=== PATIENT | female | born 1980 | race Caucasian/White ===

== ENCOUNTER 2016-10-26 17:15 | Emergency (ER) | payer SELFPAY ==
[~2016-10-26 17:15] MED LIST: Z.0.NO CURRENT MEDS; ZOFR4TAB3 SL
[2016-10-26 17:17] VITALS: BP 130/75; PULSE 90; RESP 20; TEMP 98.4; O2SAT 100
--- NOTE | 2016-10-26 17:34 | PD ---
Physical Exam Date Seen by Provider: Oct 26, 2016 Time Seen by Provider: 17:32 Narrative 36 YOHF WITH C/O CP X 1WEEK .STARTED WITH STRESS AND SOCIAL ISSUES AT HOME . SOME ANXIETY WITH SOB. NO N/V OR SWEATING. H/O CP IN THE PAST VSS. AWAITING BED PLACEMENT Data Data Last Documented VS Vital Signs Date Time Temp Pulse Resp B/P Pulse Ox O2 Delivery O2 Flow Rate FiO2 10/26/16 17:17 98.4 90 20 130/75 100 Room Air [facility] Medical Record Reviewed: Yes Supervised Visit with INDRA: Yes John Rossi Oct 26, 2016 17:34
--- NOTE | 2016-10-27 10:29 | EKG ---
Date Performed: 10/26/2016 Time Performed: 17:38:39 PTAGE: 36 years EKG: Sinus rhythm NORMAL ECG NO PREVIOUS TRACING DOCTOR: Stephanie Alcala Interpretating Date/Time 10/27/2016 10:25:30
== END 2016-10-26 21:27 | disposition left against medical advice (07) ==
LOC: NED 17:15
DX: R07.9 Chest pain, unspecified (principal); Z53.29 Procedure and treatment not carried out because of patient's decision for other reasons
CPT/HCPCS: 93005

== ENCOUNTER 2017-11-26 13:27 | Emergency (ER) | payer OTHER ==
[~2017-11-26] VITALS: Ht 162.6 cm; Wt 117.3 kg
[2017-11-26 13:28] VITALS: BP 135/72; PULSE 79; RESP 16; TEMP 98.8; O2SAT 98
--- NOTE | 2017-11-26 14:39 | PD ---
HPI Chief Complaint: Chest Pain Time Seen by Provider: 14:20 Travel History International Travel<30 days: No Contact w/Intl Traveler<30days: No Traveled to known affect area: No History of Present Illness HPI This 37-year-old female has been having chest pain for the last 2-1/2 weeks. The pain she is having is a sharp substernal chest pain that lasts up to a minute. There is no radiation of the pain. She does feel short of breath. Pain is severe. She does not smoke she has no hypertension or diabetes. She does not know her family history. She described it as a sharp pulsating pain. She has had costochondritis in the past. That pain radiated down her left arm that this pain does not. His been going on for the last 2-1/2 weeks. She says she had multiple episodes last night PFSH Past Medical History Diminished Hearing: No Influenza Vaccination: Yes ?: Not LMP: 11/2016 Tubal Ligation: Yes Past Surgical History Section: Yes Cholecystectomy: Yes Social History Alcohol Use: Yes Tobacco Use: No Substance Use: No Allergies-Medications (Allergen,Severity, Reaction): Coded Allergies: No Known Allergies (Unverified Adverse Reaction, Unknown, 11/26/17) Reported Meds & Prescriptions Reported Meds & Active Scripts Active Ibuprofen 600 Mg Tab 600 Mg PO TID Review of Systems General / Constitutional: No: Fever, Chills Eyes: No: Diploplia, Blurred Vision HENT: No: Headaches Cardiovascular: Positive: Chest Pain or Discomfort, No: Palpitations Respiratory: No: Cough, Shortness of Breath Gastrointestinal: No: Vomiting, Diarrhea Genitourinary: No: Urgency, Frequency Musculoskeletal: Positive: Myalgias Skin: No Rash, No Itching Neurologic: No: Weakness Endocrine: No: Heat Intolerance, Cold Intolerance Hematologic/Lymphatic: No: Easy Bruising Physical Exam Narrative GENERAL: Well-developed female SKIN: Focused skin assessment warm/dry. HEAD: Atraumatic. Normocephalic. EYES: Pupils equal and round. No scleral icterus. No injection or drainage. ENT: No nasal bleeding or discharge. Mucous membranes pink and moist. NECK: Trachea midline. No JVD. CARDIOVASCULAR: Regular rate and rhythm. No murmur appreciated. RESPIRATORY: No accessory muscle use. Clear to auscultation. Breath sounds equal bilaterally. There is some left-sided costochondral tenderness GASTROINTESTINAL: Abdomen soft, non-tender, nondistended. Hepatic and splenic margins not palpable. MUSCULOSKELETAL: No obvious deformities. No clubbing. No cyanosis. No edema. NEUROLOGICAL: Awake and alert. No obvious cranial nerve deficits. Motor grossly within normal limits. Normal speech. PSYCHIATRIC: Appropriate mood and affect; insight and judgment normal. Data Data Last Documented VS Vital Signs Date Time Temp Pulse Resp B/P (MAP) Pulse Ox O2 Delivery O2 Flow Rate FiO2 11/26/17 16:00 71 18 98 Room Air 11/26/17 16:00 128/72 (90) 11/26/17 13:28 98.8 Orders Orders Complete Blood Count With Diff (11/26/17 14:31) Comprehensive Metabolic Panel (11/26/17 14:31) Troponin I (11/26/17 14:31) Urinalysis - C+S If Indicated (11/26/17 14:31) Chest, Single Ap (11/26/17 14:31) Electrocardiogram (11/26/17 13:39) Ed Discharge Order (11/26/17 15:41) Labs Laboratory Tests Test 11/26/17 14:18 11/26/17 14:50 Urine Collection Type CLEAN CATCH Urine Color YELLOW Urine Turbidity CLEAR Urine pH 6.0 Urine Specific [place] 1.020 Urine Protein NEG mg/dL Urine Glucose (UA) NEG mg/dL Urine Ketones NEG mg/dL Urine Occult Blood LARGE Urine Nitrite NEG Urine Bilirubin NEG Urine Urobilinogen 0.2 MG/DL Urine Leukocyte Esterase NEG Urine RBC 10-14 /hpf Urine Squamous Epithelial Cells 0-5 /hpf Microscopic Urinalysis Comment CULT NOT INDICATED Urine Collection Time 1418 White Blood Count 10.4 TH/MM3 Red Blood Count 4.64 MIL/MM3 Hemoglobin 13.1 GM/DL Hematocrit 39.2 % Mean Corpuscular Volume 84.4 FL Mean Corpuscular Hemoglobin 28.3 PG Mean Corpuscular Hemoglobin Concent 33.5 % Red Cell Distribution Width 13.4 % Platelet Count 316 TH/MM3 Mean Platelet Volume 10.1 FL Neutrophils (%) (Auto) 55.3 % Lymphocytes (%) (Auto) 30.2 % Monocytes (%) (Auto) 9.0 % Eosinophils (%) (Auto) 1.8 % Basophils (%) (Auto) 3.7 % Neutrophils # (Auto) 5.8 TH/MM3 Lymphocytes # (Auto) 3.1 TH/MM3 Monocytes # (Auto) 0.9 TH/MM3 Eosinophils # (Auto) 0.2 TH/MM3 Basophils # (Auto) 0.4 TH/MM3 CBC Comment DIFF FINAL Differential Comment Blood Urea Nitrogen 17 MG/DL Creatinine 0.66 MG/DL Random Glucose 86 MG/DL Total Protein 7.7 GM/DL Albumin 3.5 GM/DL Calcium Level 9.0 MG/DL Alkaline Phosphatase 71 U/L Aspartate Amino Transf (AST/SGOT) 13 U/L Alanine Aminotransferase (ALT/SGPT) 26 U/L Total Bilirubin 0.8 MG/DL Sodium Level 140 MEQ/L Potassium Level 4.0 MEQ/L Chloride Level 107 MEQ/L Carbon Dioxide Level 28.3 MEQ/L Anion Gap 5 MEQ/L Estimat Glomerular Filtration Rate 102 ML/MIN Troponin I LESS THAN 0.02 NG/ML MDM Medical Decision Making Medical Screen Exam Complete: Yes Emergency Medical Condition: Yes Medical Record Reviewed: Yes Differential Diagnosis Differential includes costochondritis, atypical chest pain, coronary artery disease Narrative Course EKG shows normal sinus rhythm. Further workup is pending will be deep disposition determined by oncoming physician Scripts Ibuprofen (Ibuprofen) 600 Mg Tab 600 MG PO TID for Pain, #30 TAB 0 Refills Prov: Sanford Hernández MD 11/26/17 Sung Vance MD November 26, 2017 14:39
[2017-11-26 15:00] VITALS: BP 130/72; PULSE 72; RESP 16; O2SAT 96
[2017-11-26 15:04] LABS: AUTOMATED NEUTROPHIL # 5.8 TH/MM3 (1.8-7.7); BASOPHIL # 0.4 TH/MM3 (0-0.2); BASOPHIL % 3.7 % (0.0-2.0); EOSINOPHIL # 0.2 TH/MM3 (0-0.4); EOSINOPHIL % 1.8 % (0.0-4.0); HEMATOCRIT 39.2 % (35.0-46.0); HEMOGLOBIN 13.1 GM/DL (11.6-15.3); LYMPH % 30.2 % (9.0-44.0); LYMPHOCYTE # 3.1 TH/MM3 (1.0-4.8); MEAN CELL VOLUME 84.4 FL (80.0-100.0); MEAN CORPUSCULAR HEMOGLOBIN 28.3 PG (27.0-34.0); MEAN CORPUSCULAR HGB CONC 33.5 % (32.0-36.0); MEAN PLATELET VOLUME 10.1 FL (7.0-11.0); MONOCYTE # 0.9 TH/MM3 (0-0.9); NEUT % 55.3 % (16.0-70.0); PLATELET COUNT 316 TH/MM3 (150-450); RED BLOOD COUNT 4.64 MIL/MM3 (4.00-5.30); RED CELL DISTRIBUTION WIDTH 13.4 % (11.6-17.2); WHITE BLOOD COUNT 10.4 TH/MM3 (4.0-11.0)
[2017-11-26 15:04] LABS: BILIRUBIN, URINE NEG (NEG); BLOOD, URINE LARGE (NEG); GLUCOSE,URINE NEG (NEG); KETONE, URINE NEG (NEG); NITRITE,URINE NEG (NEG); URINE COLOR YELLOW (YELLW/STRAW); URINE LEUKOCYTE ESTERASE NEG (NEG)
[2017-11-26 15:11] LABS: SQUAMOUS EPITHELIAL CELL URINE 0-5 /hpf (0-5)
[2017-11-26 15:12] LABS: CHLORIDE 107 MEQ/L (98-107); SODIUM (NA) 140 MEQ/L (136-145)
[2017-11-26 15:16] LABS: ALBUMIN 3.5 GM/DL (3.4-5.0); BICARBONATE 28.3 MEQ/L (21.0-32.0); BLOOD UREA NITROGEN 17 MG/DL (7-18); GLUCOSE,RANDOM 86 MG/DL (74-106)
--- NOTE | 2017-11-26 15:17 | RADRPT ---
EXAM DATE/TIME: 11/26/2017 14:45 [facility] COMPARISON: No previous studies available for comparison. INDICATIONS : Chest pain and shortness of breath. MEDICAL HISTORY : None. SURGICAL HISTORY : None. ENCOUNTER: Initial ACUITY: 2 weeks PAIN SCORE: 7/10 LOCATION: Bilateral upper chest FINDINGS: Portable AP view of the chest demonstrates a normal-sized cardiac silhouette. No effusion, consolidat ion, or pneumothorax is visualized. The bones and soft tissues demonstrate no acute abnormality. EKG lines overlie the patient. CONCLUSION: No acute cardiopulmonary abnormality is identified. Ambrocio Huffman MD on November 26, 2017 at 15:14 Board Certified Radiologist. This report was verified electronically.
[2017-11-26 15:19] LABS: ALT (GPT) 26 U/L (10-53); AST (GOT) 13 U/L (15-37); CREATININE 0.66 MG/DL (0.50-1.00); GLOMERULAR FILTRATION RATE 102 ML/MIN (>89)
[2017-11-26 15:20] LABS: TOTAL BILIRUBIN ADULT 0.8 MG/DL (0.2-1.0); TOTAL PROTEIN 7.7 GM/DL (6.4-8.2)
[2017-11-26 15:22] LABS: ALKALINE PHOSPHATASE 71 U/L (45-117)
[2017-11-26 15:24] LABS: TROPONIN I LESS THAN 0.02 NG/ML (0.02-0.05)
[2017-11-26] MEDS ORDERED: IBUP-232 PO (15:41)
--- NOTE | 2017-11-26 15:41 | PD ---
Physical Exam Narrative Patient was seen by ED physician and signed out to me. Data Data Last Documented VS Vital Signs Date Time Temp Pulse Resp B/P (MAP) Pulse Ox O2 Delivery O2 Flow Rate FiO2 11/26/17 14:20 71 18 98 Room Air 11/26/17 13:28 98.8 135/72 (93) Orders Orders Complete Blood Count With Diff (11/26/17 14:31) Comprehensive Metabolic Panel (11/26/17 14:31) Troponin I (11/26/17 14:31) Urinalysis - C+S If Indicated (11/26/17 14:31) Chest, Single Ap (11/26/17 14:31) Electrocardiogram (11/26/17 13:39) Labs Laboratory Tests Test 11/26/17 14:18 11/26/17 14:50 Urine Collection Type CLEAN CATCH Urine Color YELLOW Urine Turbidity CLEAR Urine pH 6.0 Urine Specific [place] 1.020 Urine Protein NEG mg/dL Urine Glucose (UA) NEG mg/dL Urine Ketones NEG mg/dL Urine Occult Blood LARGE Urine Nitrite NEG Urine Bilirubin NEG Urine Urobilinogen 0.2 MG/DL Urine Leukocyte Esterase NEG Urine RBC 10-14 /hpf Urine Squamous Epithelial Cells 0-5 /hpf Microscopic Urinalysis Comment CULT NOT INDICATED Urine Collection Time 1418 White Blood Count 10.4 TH/MM3 Red Blood Count 4.64 MIL/MM3 Hemoglobin 13.1 GM/DL Hematocrit 39.2 % Mean Corpuscular Volume 84.4 FL Mean Corpuscular Hemoglobin 28.3 PG Mean Corpuscular Hemoglobin Concent 33.5 % Red Cell Distribution Width 13.4 % Platelet Count 316 TH/MM3 Mean Platelet Volume 10.1 FL Neutrophils (%) (Auto) 55.3 % Lymphocytes (%) (Auto) 30.2 % Monocytes (%) (Auto) 9.0 % Eosinophils (%) (Auto) 1.8 % Basophils (%) (Auto) 3.7 % Neutrophils # (Auto) 5.8 TH/MM3 Lymphocytes # (Auto) 3.1 TH/MM3 Monocytes # (Auto) 0.9 TH/MM3 Eosinophils # (Auto) 0.2 TH/MM3 Basophils # (Auto) 0.4 TH/MM3 CBC Comment DIFF FINAL Differential Comment Blood Urea Nitrogen 17 MG/DL Creatinine 0.66 MG/DL Random Glucose 86 MG/DL Total Protein 7.7 GM/DL Albumin 3.5 GM/DL Calcium Level 9.0 MG/DL Alkaline Phosphatase 71 U/L Aspartate Amino Transf (AST/SGOT) 13 U/L Alanine Aminotransferase (ALT/SGPT) 26 U/L Total Bilirubin 0.8 MG/DL Sodium Level 140 MEQ/L Potassium Level 4.0 MEQ/L Chloride Level 107 MEQ/L Carbon Dioxide Level 28.3 MEQ/L Anion Gap 5 MEQ/L Estimat Glomerular Filtration Rate 102 ML/MIN Troponin I LESS THAN 0.02 NG/ML MDM Supervised Visit with INDRA: No Interpretation(s) 1536 PM. EKG shows sinus rhythm nonspecific ST-T wave change. Last Impressions Chest X-Ray 11/26/17 1431 Signed Impressions: Service Date/Time: Sunday, November 26, 2017 14:45 - CONCLUSION: No acute cardiopulmonary abnormality is identified. Ambrocio Huffman MD 1536 PM. CBC within normal limits. CMP within normal limits. Cardiac enzymes are normal. UA is negative. Diagnosis Primary Impression: Atypical chest pain Patient Instructions: General Instructions Additional Instruction: Ibuprofen as needed for pain. Follow-up with local physician. Return if increasing chest pain shortness of breath. Med/Other Pt SpecificInfo: Prescription(s) given Scripts Ibuprofen (Ibuprofen) 600 Mg Tab 600 MG PO TID for Pain, #30 TAB 0 Refills Prov: Sanford Hernández MD 11/26/17 Disposition: 01 DISCHARGE HOME Condition: Stable Sanford Hernández MD November 26, 2017 15:41
[2017-11-26 16:00] VITALS: BP 128/72; PULSE 68; RESP 16; O2SAT 98
--- NOTE | 2017-11-26 22:27 | EKG ---
Date Performed: 11/26/2017 Time Performed: 13:39:40 PTAGE: 37 years EKG: Sinus rhythm Since previous tracing, no significant change noted NORMAL ECG PREVIOUS TRACING : 10/26/2016 17.38 DOCTOR: Js Banda Interpretating Date/Time 11/26/2017 17:23:23
== END 2017-11-26 16:33 | disposition home or self-care (01) ==
LOC: PHED 13:27
DX: R07.89 Other chest pain (principal); R06.02 Shortness of breath
CPT/HCPCS: 71045; 80053; 81001; 84484; 85025; 93005; 99285